=== PATIENT | female | born 1955 | race Caucasian/White ===

== ENCOUNTER 2016-11-03 10:56 | Day surgery (SDC) | payer MEDICAID ==
[~2016-11-03] VITALS: Ht 175.3 cm; Wt 115.5 kg
[~2016-11-03 10:56] MED LIST: AMITRIPTYLINE100 MG PO; BACTRIM DS TABL1 TAB PO; BAYER CHEWABLE81 MG PO; CARAFATE1 G/10 ML PO; CATAPRES0.1 MG PO; CELEXA40 MG PO; CYCLOBENZAPRINE10 MG PO; EFFEXOR75 MG PO; FIORICET TABLET1 TAB PO; FLAGYL500 MG PO; FLUTICASONE PRO16 GM NASAL; GLIMEPIRIDE1 MG PO; GLIPIZIDE10 MG PO; GLUCOPHAGE1000 MG PO; HYDROCHLOROTHIA25 MG PO; IMITREX50 MG PO; KENALOG IN ORABA5 GM TP; LANTUS INSULIN10 ML SC; LOMOTIL TABLET1 TAB PO; MOBIC7.5 MG PO; NEURONTIN 300300 MG PO; NEXIUM20 MG PO; NORCO 7.5-3251 EACH PO; PHENERGAN25 M1 PO; PRAVACHOL40 MG PO; QUESTRAN PACK4 G/PKT PO; TOPROL XL100 MG PO; TOPROL XL50 MG PO; VENTOLIN HFA18 GM INH; VICTOZA0.6 MG/0.1 SQ; XANAX1 MG PO; ZANTAC150 MG PO; ZESTORETIC 20/21 TAB PO; ZOLOFT100 MG PO; ZYRTEC10 MG PO
[2016-11-03 11:36] LABS: BASOPHILS 0.2 % (0.0-2.0); EOSINOPHILS 0.7 % (0-7); HEMATOCRIT 32.5 % (36.0-48.0); HEMOGLOBIN 10.4 g/dL (12-16); IMMATURE GRANULOCYTES 0.4 % (0-5); LYMPHOCYTES 11.5 % (15-50); MCH 23.1 pg (26.0-34.0); MCV 72.2 fL (80.0-100.0); MEAN PLATELET VOLUME 9.1 fL (7.4-10.4); MONOCYTES 6.9 % (2-11); NEUTROPHILS 80.3 % (40-80); PLATELET COUNT 456 10x3/uL (130-400); RDW 16.9 % (11.5-14.5); WBC 11.6 10x3/uL (4.8-10.8)
[2016-11-03 11:59] VITALS: BP 123/70; Ht 175.3 cm; Wt 115.5 kg
[2016-11-03 12:01] LABS: CALCIUM 8.5 mg/dL (8.5-10.1); CARBON DIOXIDE 26.9 mmol/L (21.0-32.0); POTASSIUM - SERUM 3.7 mmol/L (3.5-5.1)
[2016-11-03 12:03] LABS: ANION GAP 11.8 mmol/L (8-16)
--- NOTE | 2016-11-03 15:14 | NUR ---
1510 RESP EVEN AND NONLABORED ENCOURAGED TO LIE ON SIDE AND PASS FLATUS. HOOKED UP TO THE V/S MONITOR.
--- NOTE | 2016-11-03 15:43 | NUR ---
1515 VOISE HERE AND ROUNDING.
--- NOTE | 2016-11-03 15:45 | NUR ---
1540 TOLERATING FULL LIQUIDS AND PASSED FLATUS PRIOR TO PROCEDURE.
--- NOTE | 2016-11-03 16:33 | NUR ---
1605 PASSED AIR UP AND VOIDED DISCHARGE INSTRUCTIONS GIVEN AND VERBALLY UNDERSTANDS. TO HOME VIA W/C WITH [id number].
--- NOTE | 2016-11-08 10:15 | OP ---
PATIENT NAME: SUE SORIA MEDICAL RECORD: [id number] LOCATION:D.OPS ADMISSION DATE: SURGEON: KELL ASH DO DATE OF OPERATION: 11/03/2016 PROCEDURE: Colonoscopy with endoscopic mucosal resection, snare polypectomy, and random biopsies. SCOPE: Agiliance video pediatric colonoscope. MEDICATIONS: Propofol 1000 mg IV per anesthesia. Withdrawal time greater than 15 minutes. INDICATIONS FOR PROCEDURE: Diarrhea, right lower quadrant abdominal pain, hematochezia, melena/blood in stool. FINDINGS: Informed consent was given. The patient was made comfortable with the above medications. After reaching an adequate level of sedation by slow IV push, the patient was placed on her left side. The digital rectal examination was performed and was found to be normal. The pediatric colonoscope was then advanced under direct visualization through the rectum to the terminal ileum. The scope was withdrawn and mucosa was carefully looked at. An ascending colon polyp measuring approximately 1 cm in size was located just distal to the ileocecal valve. Endoscopic mucosal resection was performed by lifting the polyp with saline prior to a hot snare cautery polypectomy. The polyp was completely removed and retrieved in 1 piece. Random biopsies were taken in the ascending and transverse colon to rule out microscopic colitis regarding her past diarrhea. The transverse colon appeared normal ____. The descending colon had a single benign appearing sessile polyp measuring approximately 5 mm in diameter that was removed with snare cautery polypectomy. Polyp was completely retrieved. Scope was further withdrawn and retroflexed in the rectum. There were no hemorrhoids present. Scope was withdrawn from the patient. The patient tolerated the procedure well and there were no complications. ESTIMATED BLOOD LOSS: Less than 3 cc. IMPRESSION: Two colon polyps, one removed from the ascending colon with endoscopic mucosal resection technique, the other removed with hot snare. Random biopsies were also taken in the ascending and transverse colon to rule out microscopic colitis. PLAN AND RECOMMENDATIONS: 1. Discharge home when recovery parameters are met. 2. Continue current diet. 3. Continue current medications. 4. Await biopsy results for further recommendations regarding medications. 5. Consider [id number] Imodium or further medications per symptoms until biopsy results return. TRANSINT:[id number] Voice Confirmation ID: [id number] DOCUMENT ID: [id number] OPERATIVE REPORT [id number] SUE SORIA KELL ASH DO at 1015 CC: [id number] DICTATION DATE: 11/03/16 1505 SOCK MENDER: 11/03/16 2215 [facility] 11/03/16 [id number] [place] [address]
== END 2016-11-03 16:10 | disposition home or self-care (01) ==
LOC: D.OPS 10:56
PROVIDERS: Anesthesiology
DX: D12.2 Benign neoplasm of ascending colon (principal); D12.4 Benign neoplasm of descending colon; K52.9 Noninfective gastroenteritis and colitis, unspecified; R19.7 Diarrhea, unspecified